=== PATIENT | male | born 2000 | race African-American/Black ===

== ENCOUNTER 2022-05-06 08:11 | Emergency (ER) | payer OTHER ==
[~2022-05-06] VITALS: Ht 170.2 cm; Wt 80.9 kg
[2022-05-06] MEDS ORDERED: IBUP200C25 PO (08:35)
[2022-05-06 11:19] VITALS: BP 152/71
== END 2022-05-06 11:20 | disposition home or self-care (01) ==
LOC: M ED 08:11
DX: S93.402A Sprain of unspecified ligament of left ankle, initial encounter (principal); F10.10 Alcohol abuse, uncomplicated; Y92.9 Unspecified place or not applicable; Y93.9 Activity, unspecified; Y99.0 Civilian activity done for income or pay